=== PATIENT | female | born 1930 | race Caucasian/White ===

== ENCOUNTER 2016-11-04 19:28 | Emergency (ER) | payer OTHER ==
[~2016-11-04] VITALS: Ht 154.9 cm; Wt 49.5 kg
[~2016-11-04 19:28] MED LIST: ASCO500C43 PO; ASPI81TA28 PO; B-COCAP2 PO; BILB40CA4 PO; CHOL200027 PO; GARL1CAP6 PO; LISI-729 PO; MISC1CAP58 PO; MULT-513 PO; OMEG-13 PO; VITA400C3 PO
[2016-11-04 19:40] VITALS: TEMP 36.5; Ht 154.9 cm; Wt 49.5 kg
[2016-11-04 20:25] LABS: BASO % 0.4 %; BASO ABS # 0.02 K/uL (0-0.2); COMPLETE YES; EOS % 2.8 %; HEMATOCRIT 40.4 % (37-47); IG% 0.2 %; LYMPH % 39.2 %; LYMPH ABS # 2.13 K/uL (1.2-3.4); MEAN CELL VOLUME 92.4 fL (80-100); MEAN CORPUSCULAR HEMOGLOBIN 29.3 pg (25-34); MEAN CORPUSCULAR HGB CONC 31.7 g/dl (32-36); MEAN PLATELET VOLUME 11.1 fL (7.4-10.4); MONO % 7.2 %; NEUT % 50.2 %; PLATELET COUNT 190 K/uL (130-400); RED BLOOD COUNT 4.37 M/uL (4.2-5.4); WHITE BLOOD COUNT 5.43 K/uL (4.8-10.8)
[2016-11-04 20:44] LABS: BUN/CREATININE RATIO 30.3 (10-20); CALCIUM 9.4 mg/dl (8.5-10.1); CREATININE 0.71 mg/dl (0.60-1.20); POTASSIUM 4.4 mmol/L (3.5-5.1)
--- NOTE | 2016-11-04 21:17 | DIAGNOSTIC IMAGING REPORT ---
AP CHEST WITH RIGHT-SIDED RIB SERIES CLINICAL HISTORY: Fall with right-sided rib pain. FINDINGS: An AP chest radiograph with 4 additional views may right-sided rib series is compared to study dated 06/19/2015 and correlated with chest CT dated 10/06/2014. The AP view is degraded by patient rotation. The cardiomediastinal heart is top normal for projection and there is atherosclerotic calcification of the thoracic aorta. The pulmonary vasculature is noncongested. Chronic interstitial thickening apical scarring similar previous. There is a small hiatal hernia. No airspace consolidation, large pleural effusion, or pneumothorax is seen. The skeletal structures are osteopenic. There is no radiographic evidence of acute/distracted right-sided rib fracture on the rib series. The remainder of the bony thorax is grossly intact. Degenerative changes noted in the thoracic spine and shoulders. IMPRESSION: 1. No acute cardiopulmonary abnormality. 2. There is no radiographic evidence of acute/distracted right-sided rib fracture on the rib series as clinically queried. Electronically signed by: Ebenezer Art M.D. 11/04/2016 9:16 PM Dictated Date/Time: 11/04/2016 9:14 PM
[2016-11-04] MEDS ORDERED: MoRPHine SULFATE 4 MG/ML 1 ML CARP\\VIAL IV STA (21:26)
[2016-11-04] MEDS ORDERED: ONDANSETRON INJ 2 MG/ML 2 ML VIAL IV STA (21:26)
[2016-11-04] MEDS ORDERED: OXYC1TAB3 PO (22:05)
[2016-11-04 22:33] VITALS: BP 125/65; PULSE 53; O2SAT 96
--- NOTE | 2016-11-04 22:40 | DIAGNOSTIC IMAGING REPORT ---
CT SCAN OF THE LUMBAR SPINE WITHOUT IV CONTRAST CLINICAL HISTORY: Fall with low back pain. COMPARISON STUDY: Radiographs of lumbar spine dated 09/18/2012. Abdominal CT dated 12/08/2014. TECHNIQUE: CT scan of lumbar spine is performed from the lower thoracic spine to the sacrum. Images are reviewed in the axial, sagittal, and coronal planes. IV contrast was not administered for this examination. A dose lowering technique was utilized adhering to the principles of ALARA. CT DOSE: 1314.39 mGy.cm FINDINGS: The skeletal structures are osteopenic. There is a mild chronic superior endplate compression deformity of T12. Additionally, there is a minimal chronic superior endplate compression deformity of L5. These are unchanged the [address] Vertebral body height is otherwise maintained throughout the lumbar spine. Alignment is preserved. The transverse and spinous processes are intact. There is no evidence of spondylolysis. No lytic or blastic lesions are identified. The intervertebral disc spaces are maintained. Minimal disc bulge is seen at L4-L5 and L5-S1. There is no evidence of large disc herniation. The central canal appears clear as imaged. The visualized sacrum and bony pelvis appear intact. Mild sclerotic degenerative change is noted in the sacroiliac joints. There is mild fatty atrophy of the paraspinous musculature. The abdominal aorta is normal in caliber noting moderate atherosclerotic calcification. A simple cyst is partially visualized in the left lobe of the liver. Scattered calcified splenic granulomas are observed. A hiatal hernia is partially imaged. IMPRESSION: 1. There is no evidence of acute fracture or malalignment involving the lumbar spine. 2. Mild compression deformities of T12 and L5 are unchanged from 2015. 3. Osteopenia and minimal degenerative change as above. Electronically signed by: Ebenezer Art M.D. 11/04/2016 10:38 PM Dictated Date/Time: 11/04/2016 8:41 PM
--- NOTE | 2016-11-04 22:41 | DIAGNOSTIC IMAGING REPORT ---
CT SCAN OF THE THORACIC SPINE WITHOUT IV CONTRAST CLINICAL HISTORY: Fall with back pain. COMPARISON STUDY: Radiographs of the thoracic spine dated 09/18/2012. Chest CT dated 10/06/2014. TECHNIQUE: CT scan of the thoracic spine is performed from the lower cervical spine to the upper lumbar spine. Images are reviewed in the axial, sagittal, and coronal planes. IV contrast was not administered for this examination. A dose lowering technique was utilized adhering to the principles of ALARA. FINDINGS: The skeletal structures are osteopenic. There is no evidence of acute fracture or malalignment. There is a mild chronic compression deformity of T12, unchanged from 2015. Vertebral body height is otherwise maintained throughout the thoracic spine. Alignment is preserved. Mild kyphoscoliosis is noted. Small anterior osteophytes are seen throughout. The transverse and spinous processes are intact. No lytic or blastic lesion is seen. The disc spaces appear maintained. There is no evidence of large disc herniation. The central canal is grossly clear as imaged. The visualized posterior ribs appear intact. Linear scarring versus atelectasis is present at the left lung base. The imaged lung parenchyma is otherwise clear. There is atherosclerotic calcification of the thoracic aorta. 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 The paraspinous soft tissues are within normal limits. A moderate hiatal hernia is observed. IMPRESSION: 1. There is no evidence of acute fracture or malalignment involving the thoracic spine. 2. Osteopenia and mild kyphoscoliosis as above. 3. Hiatal hernia. 4. An aberrant right subclavian artery is incidentally noted. Electronically signed by: Ebenezer Art M.D. 11/04/2016 10:39 PM Dictated Date/Time: 11/04/2016 8:51 PM
--- NOTE | 2016-11-04 23:54 | EMERGENCY ROOM VISIT NOTE ---
History Report prepared by [place]: Hema Keita Under the Supervision of: Dr. Moisés Castro D.O. First contact with patient: 19:43 Chief Complaint: BACK INJURY Stated Complaint: BACK HURTS FROM FALL History of Present Illness The patient is an 85 year old female who presents to the Emergency Room with complaints of right lower back pain that began three days ago following a fall. She rates her pain a 5/10 in severity. At this time, the patient was standing on a stool in her bathroom when she accidentally fell off the stool, hurting her lower back in the process. She did not lose consciousness or hit her head. Her pain is exacerbated with movement, breathing, and when she lies on it. She denies any other pain at this time. Pt denies headache, change in vision, fevers , chest pain, shortness of breath, nausea, vomiting, diarrhea, pain with urination, melena, weakness, or numbness. She denies any blood thinners. Source of History: patient Onset: three days ago Position: back Symptom Intensity: 5/10 Quality: ache Timing: constant Modifying Factors (Worsening): rest, breathing, movement Associated Symptoms: No LOC, No fevers, No headache, No chest pain, No SOB, No nausea, No vomiting, No abdominal pain, No melena, No diarrhea, No urinary symptoms, No weakness, No numbness Review of Systems See HPI for pertinent positives & negatives. A total of 10 systems reviewed and were otherwise negative. Past Medical & Surgical Medical Problems: (1) Bacteremia (2) Cardiomegaly (3) Congestive Heart Failure Nos (4) Diaphragmatic Hernia (5) Diverticulosis Colon (W/O Ment Of Hemorrhage) (6) Endocarditis Nos (7) Esophageal Reflux (8) Heart attack (9) Liver Disorders Nec (10) Osteoporosis Nos Family History FH: heart disease Hypertension Social History Smoking Status: Never Smoker Drug Use: none Marital Status: Housing Status: lives with family Occupation Status: retired Current/Historical Medications Scheduled Ascorbic Acid (Vitamin C 500 mg), 500 MG PO DAILY Bilberry (Vaccinium Myrtillus) (Bilberry), 1 MG PO DAILY Cholecalciferol (Vitamin D-3), 2,000 UNITS PO DAILY Garlic (Garlic), 1 TAB PO DAILY Lisinopril (Zestril), 5 MG PO DAILY Misc Natural Products (Lutein 20), 1 CAP PO DAILY Multivitamins/Minerals (Mvi With Minerals), 1 TAB PO DAILY Bradshaw-3 Fatty Acids (Fish Oil), 1 CAP PO DAILY Vitamin B Cmplx/Vitc/Folic Ac (Nephrocaps), 1 CAP PO DAILY Vitamin E (Vitamin E 400 Iu), 400 INTER.UNIT PO DAILY Scheduled PRN Oxycodone Immediate Rel Tab (Roxicodone Ir), 5 MG PO Q6H PRN for Pain Allergies Coded Allergies: No Known Allergies (Unverified , NONE, 06/18/11) Physical Exam Vital Signs Date Time Temp Pulse Resp B/P (MAP) Pulse Ox O2 Delivery O2 Flow Rate FiO2 11/04/16 22:33 53 20 125/65 96 11/04/16 21:24 49 20 163/69 97 Room Air 11/04/16 19:40 36.5 60 16 161/68 94 Room Air Physical Exam GENERAL: alert, well appearing, well nourished, no distress, non-toxic HEAD: normal cephalic, atraumatic EYE EXAM: normal conjunctiva, PERRL and EOM's grossly intact OROPHARYNX: no exudate, no erythema, lips, buccal mucosa, and tongue normal and mucous membranes are moist EARS: TMs clear b/l NECK: supple, no nuchal rigidity, no adenopathy, non-tender CHEST: stable to compression anteriorly and posteriorly LUNGS: clear to auscultation. Normal chest wall mechanics HEART: no murmurs, S1 normal and S2 normal ABDOMEN: abdomen soft, non-tender, normo-active bowel sounds, no masses, no rebound or guarding. PELVIS: stable to compression anteriorly and posteriorly BACK: Back is symmetrical on inspection and there is no deformity. Lower thoracic spine pain on palpation. Right ribs 9-12 tenderness to palpation in right flank. No bruising. UPPER EXTREMITIES: full active and passive range of motion of all joints without tenderness to palpation LOWER EXTREMITIES: full active and passive range of motion of all joints without tenderness to palpation. Flexion and extension or hips, ankles, and EHL' s 5/5 bilaterally. NEURO EXAM: Normal sensorium, cranial nerves II-XII grossly intact, normal speech, no weakness of arms, no weakness of legs. GCS: 15. Medical Decision & Procedures ER Provider Diagnostic Interpretation: Radiology results as stated below per my review and the radiologist's interpretation: AP CHEST WITH RIGHT-SIDED RIB SERIES CLINICAL HISTORY: Fall with right-sided rib pain. FINDINGS: An AP chest radiograph with 4 additional views may right-sided rib series is compared to study dated 06/19/2015 and correlated with chest CT dated 10/06/2014. The AP view is degraded by patient rotation. The cardiomediastinal heart is top normal for projection and there is atherosclerotic calcification of the thoracic aorta. The pulmonary vasculature is noncongested. Chronic interstitial thickening apical scarring similar previous. There is a small hiatal hernia. No airspace consolidation, large pleural effusion, or pneumothorax is seen. The skeletal structures are osteopenic. There is no radiographic evidence of acute/distracted right-sided rib fracture on the rib series. The remainder of the bony thorax is grossly intact. Degenerative changes noted in the thoracic spine and shoulders. IMPRESSION: 1. No acute cardiopulmonary abnormality. 2. There is no radiographic evidence of acute/distracted right-sided rib fracture on the rib series as clinically queried. Electronically signed by: Ebenezer Art M.D. 11/04/2016 9:16 PM Dictated Date/Time: 11/04/2016 9:[address] SCAN OF THE THORACIC SPINE WITHOUT IV CONTRAST IMPRESSION: 1. There is no evidence of acute fracture or malalignment involving the thoracic spine. 2. Osteopenia and mild kyphoscoliosis as above. 3. Hiatal hernia. 4. Aberrant right subclavian artery is incidentally noted. Per Radiologist CT SCAN OF THE LUMBAR SPINE WITHOUT IV CONTRAST IMPRESSION: 1. There is no evidence of acute fracture of malalignment involving the lumbar spine. 2. Mild compression deformities of T12 and L5 are unchanged from 2014. 3. Osteopenia and minimal degenerative change as above. Per Radiolgist Laboratory Results 11/04/16 20:10 Red Blood Count 4.37, Mean Corpuscular Volume 92.4, Mean Corpuscular Hemoglobin 29.3, Mean Corpuscular Hemoglobin Concent 31.7, Mean Platelet Volume 11.1, Neutrophils (%) (Auto) 50.2, Lymphocytes (%) (Auto) 39.2, Monocytes (%) (Auto) 7.2, Eosinophils (%) (Auto) 2.8, Basophils (%) (Auto) 0.4, Neutrophils # (Auto) 2.73, Lymphocytes # (Auto) 2.13, Monocytes # (Auto) 0.39, Eosinophils # (Auto) 0.15, Basophils # (Auto) 0.02 11/04/16 20:10 Test 11/04/16 20:10 White Blood Count 5.43 K/uL (4.8-10.8) Red Blood Count 4.37 M/uL (4.2-5.4) Hemoglobin 12.8 g/dL (12.0-16.0) Hematocrit 40.4 % (37-47) Mean Corpuscular Volume 92.4 fL (80-100) Mean Corpuscular Hemoglobin 29.3 pg (25-34) Mean Corpuscular Hemoglobin Concent 31.7 g/dl (32-36) Platelet Count 190 K/uL (130-400) Mean Platelet Volume 11.1 fL (7.4-10.4) Neutrophils (%) (Auto) 50.2 % Lymphocytes (%) (Auto) 39.2 % Monocytes (%) (Auto) 7.2 % Eosinophils (%) (Auto) 2.8 % Basophils (%) (Auto) 0.4 % Neutrophils # (Auto) 2.73 K/uL (1.4-6.5) Lymphocytes # (Auto) 2.13 K/uL (1.2-3.4) Monocytes # (Auto) 0.39 K/uL (0.11-0.59) Eosinophils # (Auto) 0.15 K/uL (0-0.5) Basophils # (Auto) 0.02 K/uL (0-0.2) RDW Standard Deviation 45.1 fL (36.4-46.3) RDW Coefficient of Variation 13.2 % (11.5-14.5) Immature Granulocyte % (Auto) 0.2 % Immature Granulocyte # (Auto) 0.01 K/uL (0.00-0.02) Anion Gap 4.0 mmol/L (3-11) Est Creatinine Clear Calc Drug Dose 43.7 ml/min Estimated GFR () 90.0 Estimated GFR (Non- 77.7 BUN/Creatinine Ratio 30.3 (10-20) Calcium Level 9.4 mg/dl (8.5-10.1) Laboratory results per my review. Medications Administered Medications (Trade) Dose Ordered Sig/Venessa Route Start Time Stop Time Status Last Admin Dose Admin Morphine Sulfate (MoRPHine SULFATE INJ) 4 mg NOW STAT IV 11/04/16 21:26 11/04/16 21:27 DC 11/04/16 21:50 4 MG Ondansetron HCl (Zofran Inj) 4 mg NOW STAT IV 11/04/16 21:26 11/04/16 21:27 DC 11/04/16 21:49 4 MG ED Course ED COURSE: Vital signs were reviewed and showed hypertension. The patients medical record was reviewed The above diagnostic studies were performed and reviewed. ED treatments and interventions as stated above. 1942: The patient was evaluated in room C1. A complete history and physical examination was performed. 2125: Ordered Zofran Inj 4 mg IV, Morphine Sulfate 4 mg IV 2199: The patient is feeling better. 2211: Upon reevaluation, the patient is resting. I discussed my findings with the patient and she understands and agrees with the treatment plan. The patient remained stable while under my care. The patient appeared well at the time of discharge. Medical Decision Differential diagnoses include major intracranial, cervical, spinal, thoracic, abdominal, pelvic and neurologic injury. Fracture, contusion, sprain, strain, laceration, abrasions included as well. Patient is an 85-year-old female who presents the ER following falling Monday night will standing on a ladder and hitting her back. She complains of lower back pain. She notes she fell about 3 feet. Denies any blood in the urine. Pain is in the lower back and reproducible on exam. Worsened with movement. No blood thinners. X-ray show no pneumothorax, rib fractures or effusion. CBC and BMP were unremarkable. CT of the thoracic and lumbar spine showed no acute fractures. Patient was given a small dose of morphine. She was updated bedside. She is discharged follow-up with PCP. Discussed with Pt concerning signs and symptoms to watch out for. Pt was instructed to follow up with their PCP and discussed with the patient their option to return to the ED at anytime for persistent or worsening symptoms. The appropriate anticipatory guidance and out-patient management, including indications for return to the emergency department, were explained at length to the patient and understood. [place] Drug Monitoring Program Search Results: patient reviewed within database, no issues identified Medication Reconcilliation Current Medication List: was personally reviewed by me Blood Pressure Screening Patient's blood pressure: Elevated blood pressure Blood pressure disposition: Elevated BP felt to be situational Impression Primary Impression: Lower back pain Scribe Attestation The scribe's documentation has been prepared under my direction and personally reviewed by me in its entirety. I confirm that the note above accurately reflects all work, treatment, procedures, and medical decision making performed by me. Departure Information Dispostion Home / Self-Care Prescriptions Oxycodone Immediate Rel Tab (ROXICODONE IR) 5 Mg Tab 5 MG PO Q6H Y for Pain, #10 TAB Prov: Moisés Castro DO 11/04/16 Referrals Tomy Herr DO (PCP) Forms HOME CARE DOCUMENTATION FORM, IMPORTANT VISIT INFORMATION Patient Instructions Lumbar Pain Causes, My [facility] Additional Instructions Please follow up with your primary care doctor or if you are a student, [facility] with in the next 24 hours. Any worsening of your symptoms, please return to the ED immediately. This includes any fevers greater than 100.4, worsening pain, chest pain, shortness breath, persistent nausea, vomiting, unable to eat or drink, or any other concerning signs or symptoms from your standpoint. You were given medications during this visit that will inhibit your ability to drive, operate machinery and work. Please do NOT drive, operate machinery or work for the next 12hrs. You were also given a prescription for a narcotic. While taking this medication you should also not drive, operate machinery and or work. You were found to have a blood pressure greater than 120 systolic over 90 diastolic. Due to the new Medicare guidelines, we are now recommending that you follow up with your primary care doctor in regards to this elevated blood pressure. Problem Qualifiers Primary Impression: Lower back pain Chronicity: acute Back pain laterality: right Sciatica presence: without sciatica Qualified Codes: M54.5 - Low back pain
== END 2016-11-04 22:33 | disposition home or self-care (01) ==
LOC: C.EDB 19:29 → C.EDC 22:33
DX: M54.5 Low back pain (principal); W17.89XA Other fall from one level to another, initial encounter; K21.9 Gastro-esophageal reflux disease without esophagitis; M81.0 Age-related osteoporosis without current pathological fracture; Z79.899 Other long term (current) drug therapy; Z86.79 Personal history of other diseases of the circulatory system; Z87.19 Personal history of other diseases of the digestive system; I25.2 Old myocardial infarction; Z82.49 Family history of ischemic heart disease and other diseases of the circulatory system

== ENCOUNTER → 2016-12-09 | Outpatient (CLI) | payer OTHER ==
[~2016-12-09] MED LIST changes: -ASPI81TA28 PO; +OXYC1TAB3 PO
[2016-12-09 14:15] LABS: BASO % 0.5 %; BASO ABS # 0.02 K/uL (0-0.2); COMPLETE YES; EOS % 3.2 %; HEMATOCRIT 39.8 % (37-47); LYMPH % 43.1 %; MEAN CELL VOLUME 91.5 fL (80-100); MEAN CORPUSCULAR HEMOGLOBIN 31.5 pg (25-34); MEAN CORPUSCULAR HGB CONC 34.4 g/dl (32-36); MEAN PLATELET VOLUME 11.5 fL (7.4-10.4); NEUT % 43.2 %; PLATELET COUNT 185 K/uL (130-400); RED BLOOD COUNT 4.35 M/uL (4.2-5.4); WHITE BLOOD COUNT 4.41 K/uL (4.8-10.8)
[2016-12-09 14:50] LABS: ALT/SGPT 18 U/L (12-78); BLOOD UREA NITROGEN 17 mg/dl (7-18); BUN/CREATININE RATIO 22.4 (10-20); CALCIUM 9.3 mg/dl (8.5-10.1); CARBON DIOXIDE 28 mmol/L (21-32); CHLORIDE 105 mmol/L (98-107); CREATININE 0.74 mg/dl (0.60-1.20); GLUCOSE 88 mg/dl (70-99); POTASSIUM 4.1 mmol/L (3.5-5.1); SODIUM 139 mmol/L (136-145)
[2016-12-09 14:55] LABS: T3 TOTAL 1.02 ng/ml (0.60-1.81); THYROXINE (T4) 7.3 mcg/dl (4.5-10.9)
[2016-12-09 15:00] LABS: ALKALINE PHOSPHATASE 95 U/L (45-117); AST/SGOT 18 U/L (15-37)
== END | disposition home or self-care (01) ==
LOC: C.LAB 13:15
PROVIDERS: ATTEND Family Medicine
DX: R00.1 Bradycardia, unspecified (principal)

== ENCOUNTER → 2017-07-26 | Outpatient (CLI) | payer OTHER ==
[~2017-07-26] MED LIST changes: -OXYC1TAB3 PO
--- NOTE | 2017-07-26 15:47 | DIAGNOSTIC IMAGING REPORT ---
Brain MRI WITHOUT CONTRAST HISTORY: F09 Cognitive disorder TECHNIQUE: Multiplanar multisequence MRI of the brain was performed without the use of contrast. COMPARISON STUDY: Head CT 02/28/2012. FINDINGS: There is no mass, hematoma, midline shift, or acute infarct. Mild mucosal thickening within the paranasal sinuses. Small left mastoid effusion. The ventricles and sulci demonstrate mild age-related involutional changes. Scattered foci of T2 hyperintensity seen within the periventricular and subcortical white matter are nonspecific but suggestive of moderate microvascular ischemic changes. The major vascular flow voids at the skull base are well-maintained. 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 1 cm T2 hyperintense, T1 hypointense focus within the left superior orbit best seen in image 9. This may represent a small cystic focus and is of doubtful clinical significance. This remains unchanged. IMPRESSION: No acute intracranial abnormality. Scattered foci of T2 hyperintensity seen within the periventricular and subcortical white matter are nonspecific but favor moderate microvascular ischemic change. Electronically signed by: Benji Draper M.D. 07/26/2017 3:46 PM Dictated Date/Time: 07/26/2017 3:36 PM
== END | disposition home or self-care (01) ==
LOC: C.MRIBC 14:43
PROVIDERS: ATTEND Psychiatry & Neurology Neurology
DX: F09 Unspecified mental disorder due to known physiological condition (principal); R90.82 White matter disease, unspecified

== ENCOUNTER 2020-10-04 14:06 | Observation (INO) ==
--- NOTE | 2020-10-04 14:31 | Emergency Department Note ---
Impression & Plan Dehydration, Fever ED Provider Note NAME: NEHEMIAH JAMES AGE: 89 SEX: F : 1930 ARRIVES VIA: Walk-In INFORMANT: Patient, ED PROVIDER(S): Pepe Sheridan MD Chief Complaint: Fever, leg discomfort HPI: Patient does present from home with reported abdominal pain fever and leg discomfort. The patient does not complain of any leg pain on exam. The patient denies any fevers but has felt somewhat chilled. The patient is not vaccinated for Covid. The patient had a dry nonproductive cough. Patient has any chest pain abdominal pain nausea or vomiting. The patient states that when pushed on the abdomen she feels as though she has to urinate. Patient denies any nausea vomiting. Patient denies any issues with defecation. The patient does currently live by herself. Patient denies any recent falls or head trauma. ROS: See HPI for pertinent positives and negatives. A total of 10 systems were reviewed and otherwise negative. Past medical history: See below Surgical history: See below Social history: See below Physical Exam: GENERAL: Thin in appearance. EYE EXAM: Normal conjunctiva. PERRL, no anisocoria and EOM's grossly intact w/o pain. NECK: Supple, no nuchal rigidity, no adenopathy, non-tender. No signs of meningismus. LUNGS: Clear to auscultation. Normal chest wall mechanics. HEART: Tachycardic and regular, no MRG. ABDOMEN: Abdomen soft, non-tender, normo-active bowel sounds, no masses, no rebound or guarding. BACK: No CVA TTP. SKIN: No rashes and no bruising. UPPER EXTREMITIES: Upper extremities are grossly normal. LOWER EXTREMITIES: Grossly normal, no edema. No pain to palpation on exam. NEURO EXAM: A&O x3, cranial nerves II-XII grossly intact, normal speech, decreased range of motion right lower extremity. Good strength left lower extremity. No sensory deficits Differential diagnoses: Sepsis, UTI, pneumonia, metabolic, electrolyte abnormalities, cardiac sources, intracerebral event, toxicologic, neurologic, as well as other pathologies. Course: Patient was seen and evaluated the bedside. Full history physical exam was performed. EKG interpreted by me Normal sinus rhythm, rate 94, normal intervals, left axis deviation. Slight depression in V6. Imaging Studies: See below Cardiac monitoring: An order was placed for continuous cardiac monitoring. The monitor shows a rate of 88 with sinus rhythm. MDM: Patient was seen due to concern for some leg discomfort but the patient did present tachycardic and febrile. The patient did receive IV fluids and started on empiric antibiotics. The patient had a normal white count H&H and platelet count. The patient's kidney function is grossly unremarkable although the patient does likely have prerenal azotemia secondary to dehydration. Troponin undetectable. Urinalysis does not show evidence of obvious infection. Covid negative. I do the on-call hospice Dr. Germain and the patient was admitted to the medicine service. Past Med/Surg History Medical History Anxiety Esophageal dyskinesia Fracture of toe of left foot Fracture, Colles, right, closed Heart attack History of GI bleed Surgical History H/O abdominal surgery Family History (Updated 10/04/20 @ 18:19 by Carlitos Germain) Other No pertinent family history in first degree relatives Social History (Updated 10/04/20 @ 18:23 by Carlitos Germain) Smoking Status: Never smoker Second Hand Exposure: Yes ( smoked); Hx Alcohol Use: No Hx Substance Use: No Preferred Language: Wolof Communication Ability: Effective Cemetery Worker Required: No Beliefs That Will Affect Care: None marital status: / Current Living Situation: Alone Current Living Situation Comment: alone in a home in [place] How many Children do You have: 8 How many Children do You have Comment: 1 is Other Information That Helps Us Care for You: No Feels Safe at Home: Yes Safety Concerns: Feels Safe At This Time Assistive Devices: Denture - Lower and Hearing Aid - Bilateral Allergies Allergies Allergy/AdvReac Type Severity Reaction Status Date / Time No Known Allergies Allergy Unknown NONE Unverified 10/04/20 16:32 Home Meds Home Medications Medication Instructions Recorded Confirmed ascorbic acid (vitamin C) 500 mg 500 mg PO HS 03/27/18 10/04/20 tablet (Vitamin C) bilberry 100 mg capsule 100 mg PO HS 03/27/18 10/04/20 cholecalciferol (vitamin D3) 50 2,000 unit PO HS 03/27/18 10/04/20 mcg (2,000 unit) capsule (Vitamin D3) garlic 0 mg PO HS 03/27/18 10/04/20 multivitamin with minerals 1 tab PO HS 03/27/18 10/04/20 omega 9-cpb-ety-fish oil 1,000 mg 2,000 mg PO HS 03/27/18 10/04/20 (120 mg-180 mg) capsule (Fish Oil) vitamin B complex and vitamin C 1 cap PO HS 03/27/18 10/04/20 no.20-folic acid 1 mg capsule (Nephrocaps) Results & Data (ED) Vital Signs Vital Signs - 24 hr 10/04/20 14:15 10/04/20 14:42 10/04/20 15:49 Temperature 39.3 C H Temperature Source Temporal Artery Scan Pulse Rate 103 H Pulse Rate [Finger] 99 H Respiratory Rate 20 22 Respiratory Effort / Characteristics Non-Labored Spontaneous Respiratory Depth Normal Respiratory Pattern Regular Blood Pressure 190/89 H Blood Pressure [Left Arm] 202/95 H Blood Pressure Mean 122 Blood Pressure Mean [Left Arm] 130 Pulse Oximetry 94 92 93 Oxygen Delivery Method Room Air Room Air Room Air Sepsis Recent Fever Within 48 Hours Yes Sepsis New/Unexplained Change in Mental Status No Sepsis Action Taken by Nursing Physician Notified 10/04/20 16:36 10/04/20 17:45 Temperature 36.8 C Temperature Source Oral Pulse Rate Pulse Rate [Finger] 90 92 H Respiratory Rate 22 18 Respiratory Effort / Characteristics Respiratory Depth Respiratory Pattern Blood Pressure Blood Pressure [Left Arm] 155/70 H 134/93 Blood Pressure Mean Blood Pressure Mean [Left Arm] 98 106 Pulse Oximetry 96 94 Oxygen Delivery Method Room Air Room Air Sepsis Recent Fever Within 48 Hours Sepsis New/Unexplained Change in Mental Status Sepsis Action Taken by Snf Medications Current Medication List: was personally reviewed by me Laboratory Data Attestation: I reviewed the patient's lab results. Result diagrams: 10/04/20 14:30 10/04/20 14:30 Lab Results 10/04/20 10/04/20 10/04/20 Range/Units 14:30 14:30 14:30 WBC 7.46 (4.8-10.8) K/uL RBC 4.48 (4.2-5.4) M/uL Hgb 13.7 (12.0-16.0) g/dL Hct 40.8 (37-47) % MCV 91.1 (80-100) fL MCH 30.6 (25-34) pg MCHC 33.6 (32-36) g/dL RDW Std Deviation 45.9 (36.4-46.3) fL RDW Coeff of Korin 13.9 (11.5-14.5) % Plt Count 189 (130-400) K/uL MPV 11.2 H (7.4-10.4) fL Immature Gran % (Auto) 0.4 % Neut % (Auto) 80.8 % Lymph % (Auto) 12.9 % Bollinger % (Auto) 5.4 % Eos % (Auto) 0.4 % Baso % (Auto) 0.1 % Neut # (Auto) 6.03 (1.4-6.5) K/uL Lymph # (Auto) 0.96 L (1.2-3.4) K/uL Bollinger # (Auto) 0.40 (0.11-0.59) K/uL Eos # (Auto) 0.03 (0-0.5) K/uL Baso # (Auto) 0.01 (0-0.2) K/uL Immature Gran # (Auto) 0.03 H (0.00-0.02) K/uL PT (9.0-12.0) Seconds INR (0.9-1.1) APTT (21.0-31.0) Seconds PTT Ratio Sodium 138 (136-145) mmol/L Potassium 3.8 (3.5-5.1) mmol/L Chloride 103 (98-107) mmol/L Carbon Dioxide 28 (21-32) mmol/L Anion Gap 8.0 (3-11) BUN 20 H (7-18) mg/dl Creatinine 0.71 (0.6-1.2) mg/dl Est Cr Clr Drug Dosing Not Reportable Est GFR ( Amer) 87.5 ml/min Est GFR (Non-Af Amer) 75.5 ml/min BUN/Creatinine Ratio 28.1 H (10-20) Glucose 104 H (70-99) mg/dl Lactate (0.4-2.0) mmol/L Calcium 9.6 (8.5-10.1) mg/dl Magnesium 2.2 (1.8-2.4) mg/dl Total Bilirubin 0.6 (0.2-1) mg/dl AST 18 (15-37) U/L ALT 21 (12-78) U/L Alkaline Phosphatase 91 (45-117) U/L Troponin I < 0.015 (0-0.045) ng/ml Total Protein 8.1 (6.4-8.2) gm/dl Albumin 4.0 (3.4-5.0) gm/dl Globulin 4.1 H (2.5-4.0) gm/dl Albumin/Globulin Ratio 1.0 (0.9-2) Procalcitonin < 0.05 (0-0.5) ng/ml Urine Color Urine Appearance (Clear) Urine pH (4.5-7.5) Ur Specific [place] (1.000-1.030) Urine Protein (Negative) Urine Glucose (UA) (Negative) Urine Ketones (Negative) Urine Blood (Negative) Urine Nitrite (Negative) Urine Bilirubin (Negative) Urine Urobilinogen (Negative) Ur Leukocyte Esterase (Negative) Urine WBC (Auto) (0-5) /hpf Urine RBC (Auto) (0-4) /hpf U Hyaline Cast (Auto) (0-5) /lpf U Epithel Cells (Auto) (0-5) /lpf Urine Bacteria (Auto) (Negative) COVID-19 Eval Order SARS-CoV-2 (PCR) (Negative) 10/04/20 10/04/20 10/04/20 Range/Units 14:30 15:21 15:25 WBC (4.8-10.8) K/uL RBC (4.2-5.4) M/uL Hgb (12.0-16.0) g/dL Hct (37-47) % MCV (80-100) fL MCH (25-34) pg MCHC (32-36) g/dL RDW Std Deviation (36.4-46.3) fL RDW Coeff of Korin (11.5-14.5) % Plt Count (130-400) K/uL MPV (7.4-10.4) fL Immature Gran % (Auto) % Neut % (Auto) % Lymph % (Auto) % Bollinger % (Auto) % Eos % (Auto) % Baso % (Auto) % Neut # (Auto) (1.4-6.5) K/uL Lymph # (Auto) (1.2-3.4) K/uL Bollinger # (Auto) (0.11-0.59) K/uL Eos # (Auto) (0-0.5) K/uL Baso # (Auto) (0-0.2) K/uL Immature Gran # (Auto) (0.00-0.02) K/uL PT 10.4 (9.0-12.0) Seconds INR 1.0 (0.9-1.1) APTT 23.7 (21.0-31.0) Seconds PTT Ratio 0.9 Sodium (136-145) mmol/L Potassium (3.5-5.1) mmol/L Chloride (98-107) mmol/L Carbon Dioxide (21-32) mmol/L Anion Gap (3-11) BUN (7-18) mg/dl Creatinine (0.6-1.2) mg/dl Est Cr Clr Drug Dosing Est GFR ( Amer) ml/min Est GFR (Non-Af Amer) ml/min BUN/Creatinine Ratio (10-20) Glucose (70-99) mg/dl Lactate 1.0 (0.4-2.0) mmol/L Calcium (8.5-10.1) mg/dl Magnesium (1.8-2.4) mg/dl Total Bilirubin (0.2-1) mg/dl AST (15-37) U/L ALT (12-78) U/L Alkaline Phosphatase (45-117) U/L Troponin I (0-0.045) ng/ml Total Protein (6.4-8.2) gm/dl Albumin (3.4-5.0) gm/dl Globulin (2.5-4.0) gm/dl Albumin/Globulin Ratio (0.9-2) Procalcitonin (0-0.5) ng/ml Urine Color Urine Appearance (Clear) Urine pH (4.5-7.5) Ur Specific [place] (1.000-1.030) Urine Protein (Negative) Urine Glucose (UA) (Negative) Urine Ketones (Negative) Urine Blood (Negative) Urine Nitrite (Negative) Urine Bilirubin (Negative) Urine Urobilinogen (Negative) Ur Leukocyte Esterase (Negative) Urine WBC (Auto) (0-5) /hpf Urine RBC (Auto) (0-4) /hpf U Hyaline Cast (Auto) (0-5) /lpf U Epithel Cells (Auto) (0-5) /lpf Urine Bacteria (Auto) (Negative) COVID-19 Eval Order Covid19 at [facility] SARS-CoV-2 (PCR) (Negative) 10/04/20 10/04/20 Range/Units 15:25 15:45 WBC (4.8-10.8) K/uL RBC (4.2-5.4) M/uL Hgb (12.0-16.0) g/dL Hct (37-47) % MCV (80-100) fL MCH (25-34) pg MCHC (32-36) g/dL RDW Std Deviation (36.4-46.3) fL RDW Coeff of Korin (11.5-14.5) % Plt Count (130-400) K/uL MPV (7.4-10.4) fL Immature Gran % (Auto) % Neut % (Auto) % Lymph % (Auto) % Bollinger % (Auto) % Eos % (Auto) % Baso % (Auto) % Neut # (Auto) (1.4-6.5) K/uL Lymph # (Auto) (1.2-3.4) K/uL Bollinger # (Auto) (0.11-0.59) K/uL Eos # (Auto) (0-0.5) K/uL Baso # (Auto) (0-0.2) K/uL Immature Gran # (Auto) (0.00-0.02) K/uL PT (9.0-12.0) Seconds INR (0.9-1.1) APTT (21.0-31.0) Seconds PTT Ratio Sodium (136-145) mmol/L Potassium (3.5-5.1) mmol/L Chloride (98-107) mmol/L Carbon Dioxide (21-32) mmol/L Anion Gap (3-11) BUN (7-18) mg/dl Creatinine (0.6-1.2) mg/dl Est Cr Clr Drug Dosing Est GFR ( Amer) ml/min Est GFR (Non-Af Amer) ml/min BUN/Creatinine Ratio (10-20) Glucose (70-99) mg/dl Lactate (0.4-2.0) mmol/L Calcium (8.5-10.1) mg/dl Magnesium (1.8-2.4) mg/dl Total Bilirubin (0.2-1) mg/dl AST (15-37) U/L ALT (12-78) U/L Alkaline Phosphatase (45-117) U/L Troponin I (0-0.045) ng/ml Total Protein (6.4-8.2) gm/dl Albumin (3.4-5.0) gm/dl Globulin (2.5-4.0) gm/dl Albumin/Globulin Ratio (0.9-2) Procalcitonin (0-0.5) ng/ml Urine Color Yellow Urine Appearance Clear (Clear) Urine pH 8.5 H (4.5-7.5) Ur Specific [place] 1.010 (1.000-1.030) Urine Protein Negative (Negative) Urine Glucose (UA) Negative (Negative) Urine Ketones Trace H (Negative) Urine Blood 1+ H (Negative) Urine Nitrite Negative (Negative) Urine Bilirubin Negative (Negative) Urine Urobilinogen Negative (Negative) Ur Leukocyte Esterase Negative (Negative) Urine WBC (Auto) 1-5 (0-5) /hpf Urine RBC (Auto) 0-4 (0-4) /hpf U Hyaline Cast (Auto) 0 (0-5) /lpf U Epithel Cells (Auto) 10-20 H (0-5) /lpf Urine Bacteria (Auto) Negative (Negative) COVID-19 Eval Order SARS-CoV-2 (PCR) NEGATIVE (Negative) Administered Medications Heparin Sodium (Porcine) (Heparin Sod 5,000 Unit/0.5 Ml Vial) 5,000 units SQ Q12 [facility] Stop: 11/03/20 20:59 Last Admin: 10/04/20 20:39 Dose: 5,000 units Documented by: [id number] Potassium Chloride/Dextrose/Sod Cl (D5nss + 20meq Kcl) 20 meq in 1,000 mls @ 60 mls/hr IV .[id number] [facility] Stop: 10/05/20 12:29 Last Admin: 10/04/20 20:38 Dose: 60 mls/hr Documented by: [id number] Ceftriaxone Sodium 1,000 mg/ (Dextrose) 50 mls @ 100 mls/hr IV Q24H [facility]; Protocol Stop: 10/06/20 21:59 Last Admin: 10/04/20 21:25 Dose: 100 mls/hr Documented by: [id number] Multivitamins/Minerals (Cerovite Adv Formula Tab) 1 tab PO HS [facility] Stop: 11/03/20 20:59 Last Admin: 10/04/20 20:39 Dose: 1 tab Documented by: [id number] Vitamin B Complex/Folic Acid (Nephrocaps) 1 cap PO HS [facility] Stop: 11/03/20 20:59 Last Admin: 10/04/20 20:39 Dose: 1 cap Documented by: [id number] Vitamin D (Cholecalciferol 1,000 Units 25 Mcg Tab) 2,000 units PO HS [facility] Stop: 11/03/20 20:59 Last Admin: 10/04/20 20:38 Dose: 2,000 units Documented by: [id number] Discontinued Medications Sodium Chloride (Nss 1000ml) 1,000 mls @ 999 mls/hr IV .[id number] [facility] Stop: 10/04/20 15:44 Last Infusion: 10/04/20 16:57 Dose: 0 mls/hr Documented by: [id number] Admin: 10/04/20 15:54 Dose: 999 mls/hr Documented by: [id number] Sodium Chloride (Nss 1000ml) 500 mls @ 999 mls/hr IV .Q31M [facility] Stop: 10/04/20 16:15 Last Infusion: 10/04/20 16:30 Dose: 0 mls/hr Documented by: [id number] Admin: 10/04/20 15:54 Dose: 999 mls/hr Documented by: [id number] Acetaminophen (Ofirmev) 1,000 mg in 100 mls @ 400 mls/hr IV NOW STA Stop: 10/04/20 14:56 Last Infusion: 10/04/20 16:10 Dose: 0 mls/hr Documented by: [id number] Admin: 10/04/20 15:55 Dose: 400 mls/hr Documented by: [id number] Piperacillin Sod/Tazobactam Sod (Zosyn) 4.5 gm in 120 mls @ 240 mls/hr IV NOW ONE Stop: 10/04/20 15:11 Last Infusion: 10/04/20 16:25 Dose: 0 mls/hr Documented by: [id number] Admin: 10/04/20 15:55 Dose: 240 mls/hr Documented by: [id number] Ioversol (Optiray 320 100ml) 90 ml IV ONCE ONE Stop: 10/04/20 18:01 Last Admin: 10/04/20 18:01 Dose: 90 ml Documented by: [id number] Menthol (Cough Drop (Sugar Free) Flores 24 Flores/1 Box) Confirm Administered Dose 24 flores BUCCAL .STK-MED ONE Stop: 10/04/20 21:25 Last Admin: 10/04/20 21:26 Dose: 24 flores Documented by: [id number] Imaging Data Radiologist's Impression: Chest X-Ray 10/04/20 14:43 XR chest 1V portable CLINICAL HISTORY: SEPSIS COMPARISON STUDY: Chest CT June 28, 2019. FINDINGS: Lung volumes are normal. Lungs are clear. There is no pneumothorax or pleural effusion. Cardiac size is normal. Mediastinal contours are normal. There is no evidence for pulmonary edema. Kyphotic positioning is noted. IMPRESSION: No acute cardiopulmonary findings. ACT 112: Negative or not required by law. Electronically signed by: Jose Roberto Waters M.D. 10/04/2020 4:10 PM Abdomen/Pelvis CT 10/04/20 17:40 CT OF THE ABDOMEN AND PELVIS WITH CONTRAST CLINICAL HISTORY: fever, lower abd pain COMPARISON STUDY: CT of the abdomen and pelvis June 28, 2019. TECHNIQUE: Following IV administration of 90 mL of Optiray, axial images of the abdomen and pelvis were obtained from the lung bases to the proximal femurs. Images were reviewed in the axial, sagittal, and coronal planes. IV contrast was administered without complication. Automated exposure control was utilized for the study. A dose lowering technique was utilized adhering to the principles of ALARA. CT DOSE: 242.70 mGy.cm FINDINGS: Moderate cardiomegaly is noted. Groundglass and linear opacities with in the lower lungs favor atelectasis. A hiatal hernia is present. There is no pneumatosis, free air or portal venous gas. Several hepatic cysts are noted. A 2.2 cm left hepatic lobe cyst has decreased in size since CT of June 28, 2019. There is no biliary or pancreatic ductal dilatation. There is no hydronephrosis. The spleen, adrenal glands and pancreas are unremarkable. The appendix is normal. Bladder is distended. There is extensive sigmoid diverticulosis without evidence for acute diverticulitis. The lymphadenopathy. No acute fracture or suspicious lesion is identified within the visualized skeletal structures. There is a 1.4 cm left adnexal cyst. IMPRESSION: 1. No acute process within the abdomen or pelvis. 2. Extensive sigmoid diverticulosis without evidence for acute diverticulitis. 3. No bowel obstruction. No bowel wall thickening. 4. Distended bladder. ACT 112: Negative or not required by law. Electronically signed by: Jose Roberto Waters M.D. 10/04/2020 6:20 PM Discharge Plan Visit Data Chief Complaint: Illness Stated Complaint: ILLNESS ED Provider: Pepe Sheridan Discharge Problem: Dehydration, Fever Patient Disposition: Admitted As Inpatient Discharge Instructions Interventions: ED Discharge Assessment Last Done: 10/04/20 19:34 Discharge Problem: Fever Qualifiers: Fever type: unspecified Qualified Code(s): R50.9 - Fever, unspecified
[2020-10-04] MEDS ORDERED: PIPERACILL/TAZOBAC CONSULT ACTIVE PRN (14:42)
[2020-10-04] MEDS ORDERED: ACETAMINOPHEN 1,000 MG/100 ML VIAL IV STA (14:42)
[2020-10-04] MEDS ORDERED: PIPERACILLIN/TAZOBACTAM 4.5 GM/120 ML BAG IV ONE (14:42)
[2020-10-04] MEDS ORDERED: SODIUM CHLORIDE 0.9% 1000ML 1,000 ML IV SCH (14:45)
[2020-10-04 14:56] LABS: Basophils # (auto) 0.01 K/uL (0-0.2); Basophils % (auto) 0.1 %; Eosinophils # (auto) 0.03 K/uL (0-0.5); Eosinophils % (auto) 0.4 %; Hematocrit (blood only) 40.8 % (37-47); Hemoglobin 13.7 g/dL (12.0-16.0); Immature Granulocytes # (auto) 0.03 K/uL (0.00-0.02); Immature Granulocytes % (auto) 0.4 %; Lymphocytes # (auto) 0.96 K/uL (1.2-3.4); Lymphocytes % (auto) 12.9 %; Mean Corpuscular Hemoglobin 30.6 pg (25-34); Mean Corpuscular Hgb Conc 33.6 g/dL (32-36); Mean Corpuscular Volume 91.1 fL (80-100); Mean Platelet Volume 11.2 fL (7.4-10.4); Monocytes % (auto) 5.4 %; Neutrophils # (auto) 6.03 K/uL (1.4-6.5); Neutrophils % (auto) 80.8 %; Platelet Count 189 K/uL (130-400); RDW Coefficient of Variation 13.9 % (11.5-14.5); RDW Standard Deviation 45.9 fL (36.4-46.3); Red Blood Count 4.48 M/uL (4.2-5.4); White Blood Count 7.46 K/uL (4.8-10.8)
[2020-10-04 15:09] LABS: Partial Thromboplastin Ratio 0.9; Partial Thromboplastin Time 23.7 Seconds (21.0-31.0); Prothrombin Time 10.4 Seconds (9.0-12.0)
[2020-10-04 15:15] LABS: Alanine Aminotransferase 21 U/L (12-78); Aspartate Aminotransferase 18 U/L (15-37); BUN Creatinine Ratio 28.1 (10-20); Blood Urea Nitrogen 20 mg/dl (7-18); Calcium 9.6 mg/dl (8.5-10.1); Carbon Dioxide 28 mmol/L (21-32); Chloride 103 mmol/L (98-107); Est GFR (African American) 87.5 ml/min; Est GFR (Non-African American) 75.5 ml/min; Glucose 104 mg/dl (70-99); Magnesium 2.2 mg/dl (1.8-2.4); Potassium 3.8 mmol/L (3.5-5.1); Sodium 138 mmol/L (136-145)
[2020-10-04 15:19] LABS: Alkaline Phosphatase 91 U/L (45-117); Bilirubin,Total 0.6 mg/dl (0.2-1); Globulin 4.1 gm/dl (2.5-4.0); Total Protein 8.1 gm/dl (6.4-8.2); Troponin I < 0.015 ng/ml (0-0.045)
[2020-10-04] MEDS ORDERED: SODIUM CHLORIDE 0.9% 1000ML 500 ML IV SCH (15:45)
[2020-10-04 16:01] LABS: Appearance Urine Clear (Clear); Bacteria Urine Automated Negative (Negative); Bilirubin Urine Negative (Negative); Blood Urine 1+ (Negative); Cast Urine Automated 0 /lpf (0-5); Color Urine Yellow; Glucose Urine UA Negative (Negative); Ketones Urine Trace (Negative); Leukocyte Esterase Urine Negative (Negative); Nitrite Urine Negative (Negative); Protein Urine Negative (Negative); RBC Urine Automated 0-4 /hpf (0-4); Urobilinogen Urine Negative (Negative); pH Urine 8.5 (4.5-7.5)
--- NOTE | 2020-10-04 16:12 | XRay Report ---
XR chest 1V portable CLINICAL HISTORY: SEPSIS COMPARISON STUDY: Chest CT June 28, 2019. FINDINGS: Lung volumes are normal. Lungs are clear. There is no pneumothorax or pleural effusion. Car diac size is normal. Mediastinal contours are normal. There is no evidence for pulmonary edema. Kypho tic positioning is noted. IMPRESSION: No acute cardiopulmonary findings. ACT 112: Negative or not required by law. Electronically signed by: Jose Roberto Waters M.D. 10/04/2020 4:10 PM
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
[2020-10-04] MEDS ORDERED: OPTIRAY 320 100ml IV ONE (18:00)
--- NOTE | 2020-10-04 18:21 | CT Scan Report ---
CT OF THE ABDOMEN AND PELVIS WITH CONTRAST CLINICAL HISTORY: fever, lower abd pain COMPARISON STUDY: CT of the abdomen and pelvis June 28, 2019. TECHNIQUE: Following IV administration of 90 mL of Optiray, axial images of the abdomen and pelvis we re obtained from the lung bases to the proximal femurs. Images were reviewed in the axial, sagittal, and coronal planes. IV contrast was administered without complication. Automated exposure control wa s utilized for the study. A dose lowering technique was utilized adhering to the principles of ALARA . CT DOSE: 242.70 mGy.cm FINDINGS: Moderate cardiomegaly is noted. Groundglass and linear opacities within the lower lungs fav or atelectasis. A hiatal hernia is present. There is no pneumatosis, free air or portal venous gas. S everal hepatic cysts are noted. A 2.2 cm left hepatic lobe cyst has decreased in size since CT of Jun. There is no biliary or pancreatic ductal dilatation. There is no hydronephrosis. The spl een, adrenal glands and pancreas are unremarkable. The appendix is normal. Bladder is distended. Ther e is extensive sigmoid diverticulosis without evidence for acute diverticulitis. The lymphadenopathy. No acute fracture or suspicious lesion is identified within the visualized skeletal structures. Ther e is a 1.4 cm left adnexal cyst. IMPRESSION: 1. No acute process within the abdomen or pelvis. 2. Extensive sigmoid diverticulosis without evidence for acute diverticulitis. 3. No bowel obstruction. No bowel wall thickening. 4. Distended bladder. ACT 112: Negative or not required by law. Electronically signed by: Jose Roberto Waters M.D. 10/04/2020 6:20 PM
[2020-10-04] MEDS ORDERED: ONDANSETRON INJ 2 MG/ML 2 ML VIAL IV PRN (19:50)
[2020-10-04] MEDS ORDERED: D5NSS + 20MEQ KCL 20 MEQ/1,000 ML BAG IV SCH (19:50)
[2020-10-04] MEDS ORDERED: ACETAMINOPHEN 325 MG TAB PO PRN (19:50)
[2020-10-04] MEDS: CHOLECALCIFEROL 1,000 UNITS 25 MCG TAB PO SCH (20:38)
[2020-10-04] MEDS: HEPARIN SOD 5,000 UNIT/0.5 ML VIAL SQ SCH (20:39)
[2020-10-04] MEDS: CEROVITE ADV FORMULA TAB PO SCH (20:39)
[2020-10-04] MEDS: NEPHROCAPS PO SCH (20:39)
[2020-10-04] MEDS ORDERED: COUGH DROP (SUGAR FREE) LOZ 24 LOZ/1 BOX BUCCAL ONE (21:24)
[2020-10-04] MEDS: cefTRIAXone SODIUM 1,000 MG in DEXTROSE 5% 50 ML IV SCH (21:25)
--- NOTE | 2020-10-05 07:30 | XRay Report ---
XR chest 1V portable CLINICAL HISTORY: fever, groundglass opacities on CT, eval pneumonia COMPARISON STUDY: X-ray dated 10/04/2020, CT scan the abdomen and pelvis dated 10/04/2020 FINDINGS: The heart is borderline enlarged. There is aortic tortuosity/ectasia. There is no lobar con solidation. There is minor basilar atelectasis. There is no failure. There are no significant pleural effusions[ IMPRESSION: Mild basilar atelectatic change. ACT 112: Negative or not required by law. Electronically signed by: Jeffrey Myles M.D. 10/05/2020 7:28 AM
[2020-10-05 08:35] LABS: Basophils # (auto) 0.01 K/uL (0-0.2); Basophils % (auto) 0.1 %; Eosinophils # (auto) 0.01 K/uL (0-0.5); Eosinophils % (auto) 0.1 %; Hematocrit (blood only) 33.6 % (37-47); Hemoglobin 11.2 g/dL (12.0-16.0); Immature Granulocytes # (auto) 0.02 K/uL (0.00-0.02); Immature Granulocytes % (auto) 0.2 %; Lymphocytes # (auto) 1.62 K/uL (1.2-3.4); Lymphocytes % (auto) 17.3 %; Mean Corpuscular Hgb Conc 33.3 g/dL (32-36); Mean Corpuscular Volume 90.1 fL (80-100); Mean Platelet Volume 11.3 fL (7.4-10.4); Monocytes % (auto) 7.5 %; Neutrophils # (auto) 6.99 K/uL (1.4-6.5); Neutrophils % (auto) 74.8 %; Platelet Count 148 K/uL (130-400); RDW Coefficient of Variation 14.2 % (11.5-14.5); RDW Standard Deviation 47.3 fL (36.4-46.3); Red Blood Count 3.73 M/uL (4.2-5.4); White Blood Count 9.35 K/uL (4.8-10.8)
[2020-10-05 08:59] LABS: D Dimer 1140 ug/L FEU (0-500)
[2020-10-05 09:10] LABS: BUN Creatinine Ratio 23.4 (10-20); Calcium 8.2 mg/dl (8.5-10.1); Creatinine Clr Calc Pharmacy 41.7 ml/min; Est GFR (African American) 94.2 ml/min; Est GFR (Non-African American) 81.3 ml/min; Potassium 3.5 mmol/L (3.5-5.1)
[2020-10-05] MEDS: HEPARIN SOD 5,000 UNIT/0.5 ML VIAL SQ SCH ×2 (09:58→19:52)
[2020-10-05] MEDS: POLYETHYLENE (MIRALAX) 17 GM PACK PO SCH (10:13)
[2020-10-05 11:48] LABS: Lyme Ab IgG w/WB Rflx Negative (Negative)
[2020-10-05 11:49] LABS: Lyme Ab IgM w/WB Rflx Negative (Negative)
--- NOTE | 2020-10-05 13:14 | Electrocardiogram Report ---
Test Reason : Blood Pressure : / mmHG Vent. Rate : 094 BPM Atrial Rate : 094 BPM P-R Int : 180 ms QRS Dur : 092 ms QT Int : 358 ms P-R-T Axes : 049 -50 094 degrees QTc Int : 447 ms Normal sinus rhythm Possible Left atrial enlargement Left anterior fascicular block Nonspecific T wave abnormality Abnormal ECG When compared with ECG of 10-DEC-2014 22:39, Inverted T waves have replaced nonspecific T wave abnormality in Lateral leads Confirmed by Tung Mora ([id number]) on 10/05/2020 1:14:06 PM Referred By: REFERRED SELF Confirmed By:Tung Mora
[2020-10-05] MEDS: CHOLECALCIFEROL 1,000 UNITS 25 MCG TAB PO SCH (19:52)
[2020-10-05] MEDS: CEROVITE ADV FORMULA TAB PO SCH (19:52)
[2020-10-05] MEDS: NEPHROCAPS PO SCH (19:52)
[2020-10-05] MEDS: cefTRIAXone SODIUM 1,000 MG in DEXTROSE 5% 50 ML IV SCH (22:10)
[2020-10-06] MEDS: POLYETHYLENE (MIRALAX) 17 GM PACK PO SCH (08:44)
[2020-10-06] MEDS: HEPARIN SOD 5,000 UNIT/0.5 ML VIAL SQ SCH ×3 (08:47→20:31)
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
[2020-10-06] MEDS: DOCUSATE SODIUM 100 MG CAP PO SCH ×2 (13:08→20:30)
[2020-10-06 13:30] LABS: Basophils # (auto) 0.01 K/uL (0-0.2); Basophils % (auto) 0.2 %; Eosinophils # (auto) 0.03 K/uL (0-0.5); Eosinophils % (auto) 0.6 %; Hematocrit (blood only) 35.2 % (37-47); Hemoglobin 11.8 g/dL (12.0-16.0); Immature Granulocytes # (auto) 0.01 K/uL (0.00-0.02); Immature Granulocytes % (auto) 0.2 %; Lymphocytes # (auto) 1.78 K/uL (1.2-3.4); Lymphocytes % (auto) 36.6 %; Mean Corpuscular Hemoglobin 29.9 pg (25-34); Mean Corpuscular Hgb Conc 33.5 g/dL (32-36); Mean Corpuscular Volume 89.3 fL (80-100); Mean Platelet Volume 11.4 fL (7.4-10.4); Monocytes # (auto) 0.45 K/uL (0.11-0.59); Monocytes % (auto) 9.2 %; Neutrophils # (auto) 2.59 K/uL (1.4-6.5); Neutrophils % (auto) 53.2 %; Platelet Count 170 K/uL (130-400); RDW Coefficient of Variation 14.3 % (11.5-14.5); RDW Standard Deviation 47.2 fL (36.4-46.3); Red Blood Count 3.94 M/uL (4.2-5.4); White Blood Count 4.87 K/uL (4.8-10.8)
[2020-10-06 13:49] LABS: BUN Creatinine Ratio 19.5 (10-20); Calcium 8.6 mg/dl (8.5-10.1); Creatinine Clr Calc Pharmacy 48.3 ml/min; Est GFR (African American) 98.8 ml/min; Est GFR (Non-African American) 85.3 ml/min; Potassium 3.8 mmol/L (3.5-5.1)
[2020-10-06 14:02] LABS: Albumin Globulin Ratio 0.8 (0.9-2); Bilirubin,Total 0.4 mg/dl (0.2-1); Globulin 3.8 gm/dl (2.5-4.0); Thyroid Stimulating Hormone 2.26 uIu/ml (0.300-4.500); Total Protein 6.8 gm/dl (6.4-8.2)
[2020-10-06] MEDS: NEPHROCAPS PO SCH (20:30)
[2020-10-06] MEDS: CEROVITE ADV FORMULA TAB PO SCH (20:31)
[2020-10-06] MEDS: CHOLECALCIFEROL 1,000 UNITS 25 MCG TAB PO SCH (20:31)
--- NOTE | 2020-10-06 21:19 | Hospitalist Progress Note ---
Date of Service October 06, 2020 Assessment & Plan (1) SIRS (systemic inflammatory response syndrome): Plan: Source of fever/chills is uncertain at this time. U/a with blood only. CXR without lobar pneumonia. However, there are bibasilar groundglass opacities on CT abd/pelvis. No cellulitis on exam. CT abd/pelvis without pathology except for a distended bladder which explains her abdominal exam findings. Again, though, u/a not highly suspicious for UTI. ?secondary to constipation. Procalcitonin is <0.05. Repeat today elevated but no symptoms or sign of infection. WBC count is normal; differential with lymphopenia. Lactate is normal. Plan - * Blood and urine cultures negative 24 hours * Discontinue further ceftriaxone * can remove isolation precautions as likelihood of COVID-19 with negative test and asymptomatic very low. No lab abnormalities to suggest such either. * d-dimer elevated but no signs or symptoms to suggest pulmonary emboli. * Procalcitonin now elevated but this is the only lab/symptom suggestive of an infection at this stage * Discontinue jones cath @ midnight, bladder scan in AM for possible urinary retention (2) Fever: Plan: as above in "SIRS" (3) Urinary retention: Plan: D/c jones cath @ midnight with PVR bladder scan in AM Consider starting urge incontinence medications as outpatient (4) Acute metabolic encephalopathy: Plan: 2nd to SIRS. Supportive care. Avoid benzos/sedatives/etc. (5) Constipation: Plan: Copious stool on CT. Switch miralax to docusate per patient preference (6) DVT prophylaxis: Plan: heparin 5000 BID Plan: FEN - regular diet, easy to chew. No answer from number for son listed in EHR. Admission and Anticipated Discharge Date Admission Date: October 04, 2020 Subjective No acute events overnight. No questions or concerns for me today. Had a BM with docusate. Jones catheter in place. No fever or chills since admission. She does not longer standing urge incontinence but not change in urinary symptoms recently. No answer from her son when called. Review of Systems Review of Systems: All systems reviewed & are unremarkable except as noted in HPI & below Physical Exam Constitutional: + thin and + frail appearing; no acute distress, not ill appearing and no altered mental status Eyes: + anicteric sclerae; normal pupil size ENMT: Ears: + hearing impairment Mouth: oral mucous membranes not dry Neck: trachea midline, no thyromegaly Respiratory: normal respiratory effort; no respiratory distress Auscultation: + diminished lung sounds (left base); no crackles and no wheezes Cardiovascular: Rate/Rhythm: regular rate and regular rhythm Heart Sounds: normal S1, normal S2 and + murmur (2/6 apex) Extremities: no edema Gastrointestinal (Abdomen): Inspection/Auscultation: abdomen normal to inspection and normal bowel sounds; abdomen not distended Percussion/Palpation: abdomen soft; abdomen nontender, no guarding and abdomen not rigid Musculoskeletal: no cyanosis or clubbing, extremities motor strength 5/5 Skin: no rashes, warm and dry + ecchymosis (resolving bruise near the left knee ) Neurologic: moves all extremities and awake; not confused Psychiatric: Orientation: alert, oriented to person, oriented to place and oriented to time (to year only) Results & Data Results & Data ([facility]) Vital Signs (Past 12 Hours) Vital Signs Temp Pulse Resp BP Pulse Ox 10/06/20 16:52 36.5 C 61 18 179/78 H 98 PG Care Time/CCT Total # of Minutes Spent Total Time Spent with Patient: Total time spent is greater than 50% in coordination of care (as documented) at patient's floor/unit and/or counseling patient: Coding Level of Care Code 44847 Subseq Hosp Care Lvl 2 Diagnoses SIRS (systemic inflammatory response syndrome) R65.10 Fever R50.9 Urinary retention R33.9 Acute metabolic encephalopathy G93.41 Constipation K59.00 DVT prophylaxis Z29.9
[2020-10-07] MEDS: HEPARIN SOD 5,000 UNIT/0.5 ML VIAL SQ SCH (08:41)
[2020-10-07] MEDS: POLYETHYLENE (MIRALAX) 17 GM PACK PO SCH (08:41)
[2020-10-07] MEDS: DOCUSATE SODIUM 100 MG CAP PO SCH (08:42)
[2020-10-07] MEDS ORDERED: LOSARTAN POTASSIUM 25 MG TAB PO SCH (10:00)
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
== END 2020-10-07 12:10 | disposition home or self-care (01) ==
LOC: ED 14:06 → SUATTDRO 18:32 → 3N 18:32 → INTOOBSV 18:32 → 3N 19:34